=== PATIENT | female | born 1955 | race Caucasian/White ===

== ENCOUNTER 2024-08-21 12:51 | Emergency (ER) | payer OTHER, SELFPAY ==
[2024-08-21 12:56] VITALS: BP 127/58; PULSE 63; TEMP 37.6; O2SAT 99; BMI 31.0
--- NOTE | 2024-08-21 13:08 | XR_ITS ---
The [address] [address] Patient Name: ARTURO MENA MRN: [id number] date: 1955 Sex: F Assigned Patient Location: ER Current Patient Location: ER Accession/Order Number: [id number] Exam Date: 08/21/2024 13:20 Report Date: 08/21/2024 13:39 At the request of: INGE SALAS Procedure: XR chest 1V EXAM: CHEST 1 VIEW HISTORY: cough TECHNIQUE: Chest, one view. COMPARISON: None. FINDINGS: Small area of right lower lobe consolidation. Left lung clear. No effusion or pneumothorax. Pulmonary vasculature is within normal limits. Heart size is normal. There is a left pectoral cardiac pacemaker device. XR/XR chest 1V IMPRESSION: 1. Small area of right lower lobe pneumonia. Recommend clinical and radiographic follow-up to resolution with treatment. Electronically authenticated by: EDI DUNHAM Date: 08/21/2024 13:39
[2024-08-21 13:42] LABS: Influenza Virus A Antigen Negative; Influenza Virus B Antigen Negative; Internal Control Within Normal Limits; SARS-CoV-2 Ag NEGATIVE (NEGATIVE)
[2024-08-21 14:20] LABS: Basophils Percent Auto 0.2 % (0.2-2.0); Eosinophils Absolute Auto 0.2 10^3/uL (0.0-0.7); Eosinophils Percent Auto 1.5 % (0.9-7.0); Hematocrit 37.6 % (36.0-48.0); Hemoglobin 12.6 g/dL (12.0-16.0); Immature Granulocytes Abs Auto 0.05 10^3/uL (0.00-0.03); Immature Granulocytes Pct Auto 0.4 % (0.0-0.5); Lymphocytes Absolute Auto 1.3 10^3/uL (1.2-3.8); Lymphocytes Percent Auto 11.2 % (20.5-60.0); Mean Corpuscular HGB Conc 33.5 g/dL (29.9-35.2); Mean Corpuscular Hemoglobin 28.8 pg (26.7-34.0); Mean Corpuscular Volume 85.8 fL (81.0-99.0); Mean Platelet Volume 11.2 fL (9.5-13.5); Monocytes Absolute Auto 1.1 10^3/uL (0.3-0.8); Monocytes Percent Auto 9.5 % (1.7-12.0); Neutrophils Absolute Auto 9.1 10^3/uL (1.4-6.5); Neutrophils Percent Auto 77.2 % (43.0-75.0); Platelet Count 185 10^3/uL (150-450); Red Blood Count 4.38 10^6/uL (4.20-5.40); Red Cell Distribution Width 13.2 % (11.0-15.0); White Blood Count 11.8 10^3/uL (4.0-11.0)
[2024-08-21 14:33] LABS: Anion Gap 11.6; BUN Creatinine Ratio 10.6; Calcium 9.1 mg/dL (8.5-10.1); Chloride 97 mmol/L (98-107); Estimated GFR (African America >60 (>=60); Estimated GFR (Non-African Ame 60 (>=60); Glucose 114 mg/dL (74-106); Potassium 3.6 mmol/L (3.5-5.1); Sodium 137 mmol/L (136-145)
--- NOTE | 2024-08-21 14:41 | ED_ITS ---
HPI HPI - General Adult General Chief complaint: Upper Respiratory Infection Stated complaint: CONGESTION, WEAK, CHILLS, FEVER Time Seen by Provider: 08/21/24 13:02 Source: patient Mode of arrival: walk-in History of Present Illness HPI narrative: Six 8-year-old female presents for cough. She has been coughing up green phlegm. No hemoptysis or known fever. She has been on cefuroxime for a few days. No vomiting or diarrhea. She has been feeling weak and her appetite has been poor. Related Data Home Medications ?Medication ?Instructions ?Recorded ?Confirmed albuterol sulfate 90 mcg/actuation 2 puff inhalation Q4H PRN 08/21/24 08/21/24 aerosol inhaler shortness of breath or wheezing amlodipine 10 mg tablet (Norvasc) 10 mg PO DAILY 08/21/24 08/21/24 benazepril 10 mg tablet (Lotensin) 10 mg PO BID 08/21/24 08/21/24 cefuroxime axetil 500 mg tablet 500 mg PO BID 08/21/24 08/21/24 furosemide 40 mg tablet (Lasix) 40 mg PO BID 08/21/24 08/21/24 hydralazine 25 mg tablet 25 mg PO TID 08/21/24 08/21/24 ondansetron 4 mg disintegrating 4 mg PO Q8H PRN nausea and vomiting 08/21/24 08/21/24 tablet potassium chloride 10 mEq 10 meq PO BID 08/21/24 08/21/24 tablet,extended release(part/cryst) rosuvastatin 20 mg tablet 20 mg PO DAILY 08/21/24 08/21/24 Previous Rx's ?Medication ?Instructions ?Recorded azithromycin 250 mg tablet See Rx Instructions PO .COMPLEX #6 08/21/24 (Zithromax Z-Dax) tabs benzonatate 100 mg capsule 100 mg PO TID PRN cough #20 caps 08/21/24 Allergies Allergy/AdvReac Type Severity Reaction Status Date / Time Penicillins Allergy Severe Hives Verified 08/21/24 13:01 Opioid HPI Opioid Management Most Recent Opioid Data: No Data to Display Review of Systems ROS Narrative A ten point review of systems is negative except as noted above. Exam Narrative Exam Narrative: Nurses note and vital signs reviewed and patient is not hypoxic. General: The patient appears in no acute respiratory distress. Skin: Warm, dry, no pallor noted. There is no rash noted. Head: Normocephalic, atraumatic Eye: Normal conjunctiva, no drainage Ears, Nose, Mouth, and Throat: oral mucosa is moist. Nares patent. Cardiovascular: Regular Rate and Rhythm Respiratory: Patient is in no distress, no accessory muscle use, lungs are clear to auscultation, no wheezing, rales or rhonchi Back: non-tender GI: Soft and nontender Musculoskeletal: The patient has no evidence of calf tenderness, no pitting edema, symmetrical pulses noted bilaterally Neurological: A&O, normal speech Psychiatric: Cooperative Constitutional Vital Signs, click to edit/add: Last Vital Signs Temp 99.7 F 08/21/24 12:56 Pulse 63 08/21/24 12:56 Resp 20 08/21/24 12:56 BP 127/58 08/21/24 12:56 Pulse Ox 99 08/21/24 12:56 O2 Del Method Room Air 08/21/24 12:56 Course Vital Signs Vital signs: Vital Signs Temperature 99.7 F 08/21/24 12:56 Pulse Rate 63 08/21/24 12:56 Respiratory Rate 20 08/21/24 12:56 Blood Pressure 127/58 08/21/24 12:56 Pulse Oximetry 99 08/21/24 12:56 Oxygen Delivery Method Room Air 08/21/24 12:56 Temperature 99.7 F 08/21/24 12:56 Pulse Rate 63 08/21/24 12:56 Respiratory Rate 20 08/21/24 12:56 Blood Pressure 127/58 08/21/24 12:56 Pulse Oximetry 99 08/21/24 12:56 Oxygen Delivery Method Room Air 08/21/24 12:56 Medical Decision Making MDM Narrative Medical decision making narrative: Pneumonia is identified on the x-ray. She has been on Ceftin which is clearly not effective. We will discontinue the Ceftin and she was given a dose of IV Zithromax here and prescribed Zithromax. Vital signs are appropriate and blood work is appropriate. She does not feel that she needs to be admitted to the hospital and I do not feel that it is warranted at this point. She will be discharged home and follow-up with her PCP but return to ED if symptoms worsen. Treatment diagnosis and follow-up were discussed with the patient. Differential Diagnosis Differential Diagnosis: Pneumonia, COVID, viral URI Lab Data Lab results reviewed: Yes I reviewed the patient's lab results Labs: Lab Results 08/21/24 08/21/24 Range/Units 13:05 14:06 WBC 11.8 H (4.0-11.0) 10^3/uL RBC 4.38 (4.20-5.40) 10^6/uL Hgb 12.6 (12.0-16.0) g/dL Hct 37.6 (36.0-48.0) % MCV 85.8 (81.0-99.0) fL MCH 28.8 (26.7-34.0) pg MCHC 33.5 (29.9-35.2) g/dL RDW 13.2 (11.0-15.0) % Plt Count 185 (150-450) 10^3/uL MPV 11.2 (9.5-13.5) fL Neut % (Auto) 77.2 H (43.0-75.0) % Lymph % (Auto) 11.2 L (20.5-60.0) % Archer % (Auto) 9.5 (1.7-12.0) % Eos % (Auto) 1.5 (0.9-7.0) % Baso % (Auto) 0.2 (0.2-2.0) % Neut # (Auto) 9.1 H (1.4-6.5) 10^3/uL Lymph # (Auto) 1.3 (1.2-3.8) 10^3/uL Archer # (Auto) 1.1 H (0.3-0.8) 10^3/uL Eos # (Auto) 0.2 (0.0-0.7) 10^3/uL Baso # (Auto) 0.0 (0.0-0.1) 10^3/uL Abs Immat Gran (auto) 0.05 H (0.00-0.03) 10^3/uL Imm/Tot Granulo (auto) 0.4 (0.0-0.5) % Sodium 137 (136-145) mmol/L Potassium 3.6 (3.5-5.1) mmol/L Chloride 97 L (98-107) mmol/L Carbon Dioxide 32.0 (21.0-32.0) mmol/L Anion Gap 11.6 BUN 10.0 (7.0-18.0) mg/dL Creatinine 0.94 (0.55-1.02) mg/dL Est GFR ( Amer) >60 (>=60) Est GFR (Non-Af Amer) 60 (>=60) BUN/Creatinine Ratio 10.6 Glucose 114 H (74-106) mg/dL Calcium 9.1 (8.5-10.1) mg/dL Influenza Type A Ag Negative Influenza Type B Ag Negative SARS-CoV-2 Ag (CV2AG) Negative (NEGATIVE) Imaging Data Chest x-ray: Radiologist's impression: ITS Impressions Chest X-Ray 08/21/24 13:08 IMPRESSION: 1. Small area of right lower lobe pneumonia. Recommend clinical and radiographic follow-up to resolution with treatment. Electronically authenticated by: EDI DUNHAM Date: 08/21/2024 13:39 Discharge Plan Discharge Chief Complaint: Upper Respiratory Infection Clinical Impression: Pneumonia Patient Disposition: Home, Self-Care Time of Disposition Decision: 15:14 Condition: Good Mode of Transportation: Private Vehicle Prescriptions / Home Meds: New benzonatate 100 mg capsule 100 mg PO TID PRN (Reason: cough) Qty: 20 0RF azithromycin [Zithromax Z-Dax] 250 mg tablet See Rx Instructions .ROUTE .COMPLEX Qty: 6 0RF Rx Instructions: For 250 mg dose pack: take 500 mg today (day 1), then 250 mg for 4 days (days 2-5) No Action ondansetron 4 mg tablet,disintegrating 4 mg PO Q8H PRN (Reason: nausea and vomiting) cefuroxime axetil 500 mg tablet 500 mg PO BID albuterol sulfate 90 mcg/actuation HFA aerosol inhaler 2 puff inhalation Q4H PRN (Reason: shortness of breath or wheezing) hydralazine 25 mg tablet 25 mg PO TID benazepril [Lotensin] 10 mg tablet 10 mg PO BID furosemide [Lasix] 40 mg tablet 40 mg PO BID potassium chloride 10 mEq tablet,ER particles/crystals 10 meq PO BID rosuvastatin 20 mg tablet 20 mg PO DAILY amlodipine [Norvasc] 10 mg tablet 10 mg PO DAILY Print Language: Mohawk Instructions: Community Acquired Pneumonia (ED) Additional Instructions: Discontinue the Ceftin. Begin the oral Zithromax tomorrow. Referrals: MURALI HAAS [Primary Care Provider] - 1 week
[2024-08-21] MEDS: AZITHROMYCIN 500 MG in 0.9 % SODIUM CHLORIDE 250 ML 250 MG IV (15:13)
[2024-08-21 16:27] VITALS: BP 110/65; PULSE 60; O2SAT 98
== END 2024-08-21 16:30 | disposition home or self-care (01) ==
PROVIDERS: Emergency Provider Emergency Medicine; PCP Family Medicine
DX: J18.9 Pneumonia, unspecified organism (principal); Z20.822 Contact with and (suspected) exposure to COVID-19
CPT/HCPCS: 36415; 71045; 80048; 85025; 87804; 87811; 96365; 99285; J0456